=== PATIENT | male | born 1970 | race Caucasian/White ===

== ENCOUNTER 2017-05-06 15:41 | Emergency (ER) | payer SELFPAY | END 2017-05-06 16:38 | disposition home or self-care (01) | LOC: D.ER 15:41 | DX: M54.5 Low back pain (principal); M79.606 Pain in leg, unspecified; R07.9 Chest pain, unspecified; I50.9 Heart failure, unspecified; I10 Essential (primary) hypertension; E11.9 Type 2 diabetes mellitus without complications; Z79.4 Long term (current) use of insulin ==

== ENCOUNTER 2017-07-22 22:43 | Emergency (ER) | payer MEDICAID | END 2017-07-22 23:44 | disposition home or self-care (01) | LOC: D.ER 22:43 | DX: S93.402A Sprain of unspecified ligament of left ankle, initial encounter (principal); X58.XXXA Exposure to other specified factors, initial encounter; Y93.89 Activity, other specified; Y92.89 Other specified places as the place of occurrence of the external cause; S93.602A Unspecified sprain of left foot, initial encounter; I50.9 Heart failure, unspecified; I10 Essential (primary) hypertension; E11.9 Type 2 diabetes mellitus without complications; Z79.4 Long term (current) use of insulin ==

== ENCOUNTER 2017-08-12 14:55 | Emergency (ER) | payer MEDICAID | END 2017-08-12 16:16 | disposition home or self-care (01) | LOC: D.ER 14:55 | DX: S83.92XA Sprain of unspecified site of left knee, initial encounter (principal); W19.XXXA Unspecified fall, initial encounter; Y93.89 Activity, other specified; Y92.89 Other specified places as the place of occurrence of the external cause; I50.9 Heart failure, unspecified; I10 Essential (primary) hypertension; E11.9 Type 2 diabetes mellitus without complications; Z79.4 Long term (current) use of insulin ==

== ENCOUNTER → 2018-04-02 08:55 | Outpatient (CLI) | payer OTHER | END | disposition home or self-care (01) | LOC: D.RAD 08:55 | DX: Z02.71 Encounter for disability determination (principal) ==